=== PATIENT | male | born 1950 | race Caucasian/White ===

== ENCOUNTER 2018-01-20 09:51 | Emergency (ER) | payer MEDICARE, OTHER ==
[2018-01-20 10:36] LABS: ALT (SGPT) 89 U/L (8-55); AST (SGOT) 168 U/L (5-34); Albumin 4.1 g/dL (3.4-4.8); Alkaline Phosphatase 46 U/L (40-150); Anion Gap 21 mmol/L (10-20); BUN (Urea Nitrogen) 42 mg/dL (8.4-25.7); Bilirubin, Total 0.7 mg/dL (0.2-1.2); Calc. Creatinine Clearance 0 mL/min (70-130); Carbon Dioxide 18 mmol/L (23-31); Chloride 100 mmol/L (98-107); Estimated GFR-MDRD 36; Globulin 3.6 g/dL (2.4-3.5); Glucose 98 mg/dL (80-115); Potassium 3.7 mmol/L (3.5-5.1); Protein, Total 7.7 g/dL (5.8-8.1); Sodium 135 mmol/L (136-145)
--- NOTE | 2018-01-20 10:47 | RAD ---
PORTABLE CHEST 1 VIEW: Date: 01/20/18 Time: 1041 hours HISTORY: Influenza. FINDINGS: The heart size is borderline. No lobar consolidation, pneumothoraces, zachary pulmonary edema, or large effusions seen. IMPRESSION: No acute process. POS: OFF
[2018-01-20 10:54] LABS: Hemoglobin 14.7 g/dL (14.0-18.0); Mean Corpuscular HGB CONC 34.6 g/dL (32.0-36.0); Mean Corpuscular Hemoglobin 29.9 pg (27.0-31.0); Mean Corpuscular Volume 86.2 fl (80.0-94.0); Mean Platelet Volume 7.2 fL (7.4-10.4); Platelet Count 149 thou/uL (130-400); RBC Distribution Width 13.4 % (11.5-14.5); Red Blood Cell (RBC) Count 4.92 mill/uL (4.70-6.10); White Blood Cell (WBC) Count 4.1 thou/uL (4.8-10.8)
[2018-01-20 10:59] LABS: Band 7 % (5-11); Eosinophils 1 % (0-10); Lymphocytes 24 % (21-51); MDiff Complete? YES; Monocytes 13 % (0-10); Neutrophil 55 % (42-75); PLT Morphology Comment Appears Adequate; RBC Morphology Normal
[2018-01-20 11:18] LABS: Bilirubin Small (Negative); Blood, Urine Moderate (Negative); Clarity Clear (Clear); Glucose, Urine (Dipstick) Negative (Negative); Leukocyte Negative (Negative); Nitrite Negative (Negative); Protein, Urine (Dipstick) 30 mg/dL (Neg-Trace); Specific Gravity, Urine 1.015 (1.005-1.030); Urobilinogen 0.2 mg/dL (0.2-1.0); pH, Urine 5.5 (5.0-9.0)
[2018-01-20 11:37] LABS: RBC/HPF 0-3 HPF (0-3)
[2018-01-20 11:38] LABS: Bacteria/HPF None Seen HPF (None Seen); Crystals/HPF RARE CA OXALATE HPF (Negative); Hyaline Casts/LPF 4-6 HYALINE CAST LPF (0-3 Hyaline); Squamous Epithelial 0-3 HPF (0-3)
[2018-01-20 12:37] LABS: Anion Gap 17 mmol/L (10-20); BUN (Urea Nitrogen) 38 mg/dL (8.4-25.7); Calc. Creatinine Clearance 0 mL/min (70-130); Calcium 7.9 mg/dL (7.8-10.44); Carbon Dioxide 20 mmol/L (23-31); Chloride 105 mmol/L (98-107); Estimated GFR-MDRD 49; Glucose 85 mg/dL (80-115); Potassium 3.5 mmol/L (3.5-5.1); Sodium 138 mmol/L (136-145)
--- NOTE | 2018-01-25 16:19 | EKG ---
Test Reason : Blood Pressure : / mmHG Vent. Rate : 087 BPM Atrial Rate : 087 BPM P-R Int : 134 ms QRS Dur : 088 ms QT Int : 392 ms P-R-T Axes : 013 -32 038 degrees QTc Int : 471 ms Normal sinus rhythm Left axis deviation Moderate voltage criteria for LVH, may be normal variant No STEMI Abnormal ECG Confirmed by FANI GARZA, SHAN ([id number]), editor magazine ANDRE SANTORO ([id number]) on 01/25/2018 4:19:29 PM Referred By: FANI Confirmed By:SHAN MOHR MD
== END 2018-01-20 14:14 | disposition home or self-care (01) ==
LOC: SCSER 09:51
DX: J11.1 Influenza due to unidentified influenza virus with other respiratory manifestations (principal); E86.0 Dehydration; M06.9 Rheumatoid arthritis, unspecified; Z79.82 Long term (current) use of aspirin; Z87.891 Personal history of nicotine dependence
CPT/HCPCS: 71045; 80053; 81003; 81015; 83605; 85025; 87040; 93005; 96360; 96361; 99213; G0463

== ENCOUNTER 2020-01-04 09:51 | Outpatient (CLI) | payer MEDICARE, OTHER ==
[2020-01-04 10:19] LABS: Estimated GFR-MDRD - POC Greater than 90
--- NOTE | 2020-01-04 10:53 | CT ---
CT ABDOMEN AND PELVIS WITH IV CONTRAST 01/04/2020 CLINICAL INFORMATION: Upper abdominal pain. COMPARISON: 03/25/2017 Technique: Multiple contiguous axial CT images are obtained through the abdomen and pelvis with IV contrast. Cor onal reformatted images are provided. FINDINGS: Lower Chest: Mild bibasilar atelectasis is present. Stable 5 mm pulmonary nodule is seen at the right lung base. This nodule was also seen on prior exam in 2014. Vessels: Vascular calcifications are seen in the abdominal aorta and involving the iliac arteries. Abdomen: Portal vein:Patent Gallbladder: Within normal limits for CT imaging. Liver: A 13 mm hypodense lesion is seen in the posterior aspect lateral segment left hepatic lobe pre viously measured 11 mm on prior studies in 2014 in 2016. This is difficult to further characterize but likely represents a hepatic cyst. Spleen: Stable hypodense lesion with peripheral calcifications is again seen in the spleen suggestive of a splenic cyst. Subcentimeter too small to characterize hypodense lesion is also again seen in the lower pole of the spleen also likely related to a cyst. Pancreas: within normal limits. Adrenals: within normal limits. Kidneys: Stable hypodense bilateral renal lesions are again seen likely attributable to cysts given s imilar appearance to prior exams. Bowel: Postsurgical change are seen in the region of the rectosigmoid junction. A few scattered colon ic diverticula are seen, and there is small amount of retained fecal material seen throughout the colon. Loops of small bowel are normal in caliber. Appendix: The appendix is visualized and normal in caliber. Peritoneum: No ascites or free air; no fluid collection. Mesentery and Retroperitoneum: No enlarged mesenteric or retroperitoneal lymph nodes. Abdominal Wall: within normal limits. Pelvis: Reproductive Organs: Prostate gland is heterogeneous in appearance but similar to prior studies. Pelvis within normal limits. Bladder: Partially decompressed. There is mass effect on the inferior aspect urinary bladder secondar y to the prostate gland. This was also noted on prior exams. Bones: There are mild wedge-shaped compression fracture involving the T12, L1, and L2 vertebral chelsea s overall stable compared to prior studies. Schmorl's nodes are seen in endplates of these vertebral bodies. IMPRESSION: 1. No acute findings are seen in the abdomen or pelvis. 2. Cysts within the liver, spleen, and bilateral kidneys. 3. Mild prominence of the prostate gland which results in mass effect on the posterior inferior aspec t of the urinary bladder similar to prior exams. 4. Remote compression deformities involving the T12, L1, and L2 vertebral bodies.
== END 2020-01-04 09:52 | disposition home or self-care (01) ==
LOC: SCSCT 09:51
PROVIDERS: ATTEND Family Medicine
DX: R10.10 Upper abdominal pain, unspecified (principal); N28.1 Cyst of kidney, acquired; K76.89 Other specified diseases of liver; D73.4 Cyst of spleen; N32.89 Other specified disorders of bladder
CPT/HCPCS: 74177; 82565

== ENCOUNTER 2020-01-25 07:36 | Outpatient (CLI) | payer MEDICARE, OTHER ==
--- NOTE | 2020-01-25 08:54 | ULT ---
ULTRASOUND ABDOMEN LIMITED: (RIGHT UPPER QUADRANT) DATE: 01/25/2020. HISTORY: A 69-year-old male with epigastric pain. FINDINGS: Gallbladder: Tiny 0.7 cm nonshadowing hyperechoic focus in the lumen adherent to the inner wall. Fav ored to be a tiny polyp rather than gallstone. No pericholecystic fluid. No excessive distention of lumen. Common duct: 3 mm. Liver: Normal size and echogenicity. Pancreas: Almost completely obscured by shadowing from overlying bowel gas. Right kidney: No hydronephrosis. A 2 cm round complex cyst with focal internal echo/septation. IMPRESSION: 1. Tiny hyperechoic focus favored to represent gallbladder polyp rather than gallstone. 2. Complex cystic lesion in right kidney. DONG Asencio POS: CET
== END 2020-01-25 07:37 | disposition home or self-care (01) ==
LOC: SCSULT 07:36
PROVIDERS: ATTEND Internal Medicine Gastroenterology
DX: R10.13 Epigastric pain (principal); N28.1 Cyst of kidney, acquired
CPT/HCPCS: 76705

== ENCOUNTER 2020-02-02 09:24 | Outpatient (CLI) | payer MEDICARE, OTHER ==
[2020-02-02 11:16] LABS: #Eosinphils 0.2 thou/uL (0.0-0.7); #Lymphocytes 1.3 thou/uL (1.20-3.40); #Monocytes 0.8 thou/uL (0.11-0.59); #Neutrophils 5.6 thou/uL (1.40-6.50); %Basophils 0.6 % (0.0-1.0); %Eosinophils 2.1 % (0.0-10.0); %Lymphocytes 16.5 % (21.0-51.0); %Monocytes 9.9 % (0.0-10.0); %Neutrophils 70.9 % (42.0-75.0); Hemoglobin 13.4 g/dL (14.0-18.0); Mean Corpuscular HGB CONC 33.3 g/dL (32.0-36.0); Mean Corpuscular Hemoglobin 30.2 pg (27.0-31.0); Mean Corpuscular Volume 90.8 fL (78.0-98.0); Mean Platelet Volume 6.9 fL (7.4-10.4); Platelet Count 238 thou/uL (130-400); RBC Distribution Width 13.7 % (11.5-14.5); Red Blood Cell (RBC) Count 4.44 mill/uL (4.70-6.10); White Blood Cell (WBC) Count 7.9 thou/uL (4.8-10.8)
[2020-02-02 11:38] LABS: ALT (SGPT) 14 U/L (8-55); AST (SGOT) 16 U/L (5-34); Alkaline Phosphatase 62 U/L (40-110); Anion Gap 13 mmol/L (10-20); BUN (Urea Nitrogen) 15 mg/dL (8.4-25.7); Bilirubin, Direct 0.2 mg/dL (0.1-0.3); Bilirubin, Total 0.4 mg/dL (0.2-1.2); Calc. Creatinine Clearance 0 mL/min (70-130); Calcium 9.1 mg/dL (7.8-10.44); Carbon Dioxide 25 mmol/L (23-31); Chloride 105 mmol/L (98-107); Estimated GFR-MDRD Greater than 90; Glucose 82 mg/dL (80-115); Potassium 3.8 mmol/L (3.5-5.1); Sodium 139 mmol/L (136-145)
--- NOTE | 2020-02-02 22:56 | EKG ---
Test Reason : Blood Pressure : / mmHG Vent. Rate : 067 BPM Atrial Rate : 067 BPM P-R Int : 166 ms QRS Dur : 096 ms QT Int : 422 ms P-R-T Axes : 055 003 047 degrees QTc Int : 445 ms Normal sinus rhythm Normal ECG When compared with ECG of 24-JUN-2019 11:46, Minimal criteria for Septal infarct are no longer Present QT has shortened Confirmed by COCO GARZA, SChristine ([id number]) on 02/02/2020 10:56:20 PM Referred By: PIOTR Confirmed By:DR. Rolando SEPULVEDA MD
== END 2020-02-02 09:25 | disposition home or self-care (01) ==
LOC: LABBT 09:24
PROVIDERS: ATTEND Surgery
DX: Z01.818 Encounter for other preprocedural examination (principal); K81.1 Chronic cholecystitis
CPT/HCPCS: 80053; 80076; 85025; 93005; 93010

== ENCOUNTER 2020-02-03 07:03 | Day surgery (SDC) | payer MEDICARE, OTHER ==
[2020-02-02 10:00] VITALS: BMI 27.6
[2020-02-03] MEDS ORDERED: Bupivacaine PF 0.5% 30 ML VIAL ONE (08:37)
[2020-02-03] MEDS ORDERED: Lidocaine 1% w/Epinephrine 1:100K 20 ML VIAL ONE (08:37)
[2020-02-03] MEDS ORDERED: Fentanyl 250 MCG/5 ML VIAL ONE (08:48)
[2020-02-03] MEDS ORDERED: Fentanyl 100 MCG/2 ML VIAL ONE ×3 (10:14→11:02)
[2020-02-03] MEDS ORDERED: hydrALAZINE 20 MG/ML VIAL ONE (10:14)
[2020-02-03] MEDS ORDERED: Promethazine HCl 25 MG/ML VIAL ONE (10:18)
[2020-02-03] MEDS ORDERED: Labetalol HCl 100 MG/20 ML VIAL ONE (10:22)
[2020-02-03] MEDS ORDERED: PROPOFOL 200 MG/20 ML VIAL ONE (10:22)
[2020-02-03] MEDS ORDERED: Rocuronium Bromide 10 MG/ML (10ML VIAL) ONE (10:22)
[2020-02-03] MEDS ORDERED: Ondansetron PF 4 MG/2 ML Vial ONE (10:22)
[2020-02-03] MEDS ORDERED: HYDROmorphone 0.5 MG/0.5 ML SYRINGE ONE (11:15)
[2020-02-03] MEDS ORDERED: HYDROcodone/Acetaminophen 5/325 mg Tablet ONE (13:06)
--- NOTE | 2020-02-03 15:12 | OP ---
DATE OF PROCEDURE: 02/03/2020 PREOPERATIVE DIAGNOSIS: Symptomatic cholelithiasis. PROCEDURES PERFORMED: Laparoscopic lysis of adhesions and laparoscopic cholecystectomy. INDICATIONS: A 69-year-old male. He had a previous partial colectomy, was having extensive abdominal pain. Ultrasound showed a polyp in his gallbladder. FINDINGS: Dense adhesions. His transverse colon was actually adherent to the high port of the right side of the diaphragm covering the liver. I had to take all these adhesion down, just to get down to the gallbladder. He had a small caliber cystic duct. DESCRIPTION OF PROCEDURE: After informed consent was obtained, the patient was taken to the operating room, given general endotracheal anesthesia and placed in supine position. Abdomen was prepped and draped in usual fashion. Local anesthesia infiltrated subcutaneously and deep and a 5-mm port was placed subcostal, lateral right abdomen. A Veress needle inserted. Drop test performed. Pneumoperitoneum was created to a volume of 2 L of carbon dioxide. Utilizing a bladeless 5-mm trocar and 0-degree laparoscope, direct visual entry into the abdominal cavity was performed. Pneumoperitoneum was created to a pressure of 15 mmHg. A 0-degree laparoscope inserted under direct vision. There were minimal anterior abdominal wall adhesions, so a subumbilical incision was performed, 10-mm port placed there and two other 5-mm ports were placed right subcostal. The liver was not able to be visualized due to the transverse colon covering it, being adherent to the diaphragm way up high into the superior right side. The laparoscopic lysis of adhesions was performed utilizing the LigaSure to allow reduction of the colon to uncover the liver and expose the gallbladder. Then, the gallbladder was grasped and advanced superiorly. The peritoneum was dissected to expose the duct and artery. These were triply ligated with hemoclips and divided. The gallbladder was removed from its fossa utilizing electrocautery, placed in an endosac, removed from the abdomen in the endosac. Hemostasis was achieved utilizing electrocautery as well as Heidi powder. Trocars and retractors were removed. The fascia was closed with interrupted 0 Vicryl suture. The skin was closed with interrupted 4-0 Rapide. Dermabond applied. The patient tolerated the procedure well, transferred to Recovery in good condition. Sponge and needle count verified correct x2. Job ID: [id number]
== END 2020-02-03 14:50 | disposition home or self-care (01) ==
LOC: SDC 07:03
PROVIDERS: ATTEND Surgery
PROC: 0FT44ZZ Resection of Gallbladder, Percutaneous Endoscopic Approach (ICD-10-PCS; principal; 2020-02-03)
DX: K80.10 Calculus of gallbladder with chronic cholecystitis without obstruction (principal); K66.0 Peritoneal adhesions (postprocedural) (postinfection); E78.00 Pure hypercholesterolemia, unspecified; M06.9 Rheumatoid arthritis, unspecified; Z87.891 Personal history of nicotine dependence; Z79.82 Long term (current) use of aspirin; Z79.899 Other long term (current) drug therapy; Z88.2 Allergy status to sulfonamides
CPT/HCPCS: 88304; J0360; J0694; J1170; J2405; J2550; J2704; J3010; S0020

== ENCOUNTER 2020-05-13 10:59 | Outpatient (CLI) | payer MEDICARE, OTHER ==
--- NOTE | 2020-05-13 11:45 | ULT ---
EXAM: US Gallbladder RUQ CLINICAL HISTORY: Right upper quadrant pain. Recent cholecystectomy. COMPARISON: None. FINDINGS: Pancreas: Obscured by bowel gas Liver:Hepatic parenchyma has a normal echotexture. No hepatic masses or intrahepatic biliary dilatati on. Right hepatic lobe: 14.7 cm Gallbladder: Surgically absent Barragan's sign:Not applicable Portal Vein: Patent. Appropriate directional flow Bile ducts: 2.5 cm common bile duct diameter Right kidney: No hydronephrosis. Right kidney measures 6.3 x 11.8 x 6.0 cm in length. Hypoechoic focu s in the right renal cortex measures 1.8 x 2.1 x 1.8 cm. IMPRESSION: 1. Surgically absent gallbladder. No acute abnormality. 2. Hypoechoic focus in the right renal cortex as described above. Sonographic features suggest a comp leatha cyst. However, correlation made with CT 01/04/2020 does demonstrate a simple cyst.
== END 2020-05-13 11:00 | disposition home or self-care (01) ==
LOC: SCSULT 10:59
PROVIDERS: ATTEND Surgery
DX: R10.11 Right upper quadrant pain (principal); Z90.49 Acquired absence of other specified parts of digestive tract; N28.89 Other specified disorders of kidney and ureter
CPT/HCPCS: 76705

== ENCOUNTER 2021-06-19 01:48 | Inpatient (IN) | payer MEDICARE ==
[~2021-06-19 01:48] MED LIST: Bupivacaine PF 0.5% 30 ML VIAL ONE; Dexamethasone 4 mg/ml Vial ONE; EPINEPHrine 1 MG/ML AMP ONE; Heparin 5,000 UNITS/ML VIAL ONE; Protamine Sulfate 50 MG/5 ML VIAL ONE
[2021-06-19] MEDS ORDERED: Acetaminophen 325 MG TAB PO PRN (02:14)
[2021-06-19] MEDS ORDERED: Ondansetron PF 4 MG/2 ML Vial IVP PRN (02:14)
[2021-06-19] MEDS ORDERED: Fentanyl 100 MCG/2 ML VIAL SLOW IVP PRN ×2 (02:14)
[2021-06-19] MEDS ORDERED: Vancomycin HCl 1.5 GM in Sodium Chloride 0.9% 250 ML 300 ML IVPB SCH (02:15)
[2021-06-19] MEDS ORDERED: traMADol HCl 50 MG TAB PO PRN ×2 (02:16)
[2021-06-19] MEDS ORDERED: Succinylcholine 200 MG/10 ml SYRINGE FS ONE (02:22)
[2021-06-19] MEDS ORDERED: Ondansetron PF 4 MG/2 ML Vial ONE ×3 (02:22→18:47)
[2021-06-19] MEDS ORDERED: PROPOFOL 200 MG/20 ML VIAL ONE ×3 (02:22→18:47)
[2021-06-19] MEDS ORDERED: PHENYLEPHRINE-NS 100 MCG/ML 10 ML SYRINGE ONE ×3 (02:22→18:47)
[2021-06-19] MEDS ORDERED: Lidocaine 1% PF 5 ML VIAL ONE ×2 (02:22→14:39)
[2021-06-19] MEDS ORDERED: Fentanyl 100 MCG/2 ML VIAL ONE ×2 (02:34→13:34)
[2021-06-19] MEDS ORDERED: Ondansetron HCl/PF 4 MG/2 ML Vial IVP PRN ×3 (03:07→20:20)
[2021-06-19] MEDS ORDERED: Promethazine HCl 25 MG/ML VIAL IVPB PRN ×2 (03:07→20:20)
[2021-06-19] MEDS ORDERED: Promethazine HCl 25 MG/ML VIAL IM PRN ×2 (03:07→20:20)
[2021-06-19] MEDS ORDERED: Promethazine HCl 25 MG/ML VIAL ONE (03:08)
[2021-06-19] MEDS: Sodium Chloride 0.9% 1,000 ML IV SCH ×2 (04:35→18:36)
[2021-06-19 05:04] VITALS: BMI 26.2
[2021-06-19] MEDS: CEFAZOLIN 2 GM in Premix Bag 1 BAG IVPB SCH ×3 (06:14→18:36)
[2021-06-19] MEDS ORDERED: Promethazine HCl 12.5 MG in Sodium Chloride 0.9% 50 ML IVPB PRN (07:14)
[2021-06-19] MEDS ORDERED: Promethazine HCl 25 MG in Sodium Chloride 0.9% 50 ML IVPB PRN (07:14)
[2021-06-19] MEDS ORDERED: Aspirin Chewable 81 MG TAB PO SCH (09:00)
[2021-06-19] MEDS: Gabapentin 300 MG CAP PO SCH (10:21)
[2021-06-19] MEDS: Folic Acid 1 MG TAB PO SCH (10:21)
[2021-06-19] MEDS: Aspirin 81 mg Enteric Coated Tablet PO SCH (10:21)
[2021-06-19] MEDS: Hydroxychloroquine Sulfate 200 MG TAB PO SCH ×2 (10:21→21:21)
[2021-06-19] MEDS: Clindamycin/D5W 900 MG in Premix Bag 1 BAG IVPB SCH ×3 (10:23→21:47)
[2021-06-19] MEDS ORDERED: Heparin 5,000 UNITS/ML VIAL ONE ×2 (13:12→18:07)
[2021-06-19] MEDS ORDERED: Protamine Sulfate 50 MG/5 ML VIAL ONE ×2 (13:12→18:07)
[2021-06-19] MEDS ORDERED: EPINEPHrine 1 MG/ML AMP ONE (13:26)
[2021-06-19] MEDS ORDERED: Dexamethasone 4 mg/ml Vial ONE (13:26)
[2021-06-19] MEDS ORDERED: Bupivacaine PF 0.5% 30 ML VIAL ONE (13:26)
[2021-06-19] MEDS ORDERED: Iopamidol-370 76% 500 ML 1 ML ONE (13:54)
[2021-06-19] MEDS ORDERED: Dexamethasone 20 MG/5 ML VIAL ONE ×2 (14:39→18:47)
[2021-06-19] MEDS ORDERED: Rocuronium Bromide 10 MG/ML (10ML VIAL) ONE ×2 (14:39→18:47)
[2021-06-19] MEDS ORDERED: Glycopyrrolate 0.2 MG/ML 5 ML SYRINGE ONE ×2 (14:39→18:47)
[2021-06-19] MEDS ORDERED: ePHEDrine 50 MG/ML VIAL ONE (14:39)
[2021-06-19] MEDS ORDERED: Morphine Sulfate 2 MG/ML SYRINGE SLOW IVP PRN ×2 (15:44→20:20)
[2021-06-19] MEDS: Vancomycin 1.5 GRAM/300 ML BAG 1.5 GM in Premix Bag 1 BAG IVPB SCH (17:19)
[2021-06-19] MEDS ORDERED: Midazolam HCl 2 mg/2 ml Vial ONE (18:10)
[2021-06-19] MEDS ORDERED: Fentanyl 250 MCG/5 ML VIAL ONE (18:10)
[2021-06-19] MEDS ORDERED: Calcium Chloride 1 GM/10 ML Abboject SYRINGE ONE (18:47)
[2021-06-19] MEDS ORDERED: Albumin 25% 0 ML ONE (19:09)
[2021-06-19] MEDS ORDERED: Albumin 25% 100 ML ONE (19:11)
[2021-06-20] MEDS: Vancomycin 1.5 GRAM/300 ML BAG 1.5 GM in Premix Bag 1 BAG IVPB SCH (00:20)
[2021-06-20] MEDS: Sodium Chloride 0.9% 1,000 ML IV SCH (01:47)
[2021-06-20] MEDS: Methotrexate Sodium 2.5 MG TAB PO SCH (01:48)
[2021-06-20] MEDS: CEFAZOLIN 2 GM in Premix Bag 1 BAG IVPB SCH (02:35)
[2021-06-20] MEDS: Clindamycin/D5W 900 MG in Premix Bag 1 BAG IVPB SCH (03:55)
[2021-06-20 05:27] LABS: #Lymphocytes 0.9 thou/uL (1.20-3.40); #Monocytes 0.7 thou/uL (0.11-0.59); #Neutrophils 9.8 thou/uL (1.40-6.50); %Basophils 0.1 % (0.0-1.0); %Eosinophils 0.1 % (0.0-10.0); %Lymphocytes 7.4 % (21.0-51.0); %Monocytes 6.4 % (0.0-10.0); Hemoglobin 8.1 g/dL (14.0-18.0); Mean Corpuscular HGB CONC 34.3 g/dL (32.0-36.0); Mean Corpuscular Hemoglobin 33.1 pg (27.0-31.0); Mean Corpuscular Volume 96.3 fL (78.0-98.0); Mean Platelet Volume 6.4 fL (7.4-10.4); Platelet Count 290 thou/uL (130-400); RBC Distribution Width 13.1 % (11.5-14.5); Red Blood Cell (RBC) Count 2.46 mill/uL (4.70-6.10); White Blood Cell (WBC) Count 11.4 thou/uL (4.8-10.8)
[2021-06-20] MEDS ORDERED: Clindamycin 150 MG CAP PO SCH (07:00)
[2021-06-20] MEDS ORDERED: Vancomycin 1.5 GRAM/300 ML BAG 1.5 GM in Premix Bag 1 BAG IVPB SCH (09:00)
[2021-06-20] MEDS ORDERED: Vancomycin HCl 1.5 GM in Sodium Chloride 0.9% 250 ML 300 ML IVPB SCH (09:00)
[2021-06-20] MEDS: Aspirin 81 mg Enteric Coated Tablet PO SCH (09:49)
[2021-06-20] MEDS: Folic Acid 1 MG TAB PO SCH (09:50)
[2021-06-20] MEDS: Gabapentin 300 MG CAP PO SCH (09:50)
[2021-06-20] MEDS: Hydroxychloroquine Sulfate 200 MG TAB PO SCH ×2 (09:51→22:45)
[2021-06-20] MEDS: Doxycycline 100 MG CAP PO SCH (20:10)
[2021-06-21 05:24] LABS: #Basophils 0.1 thou/uL (0.0-0.2); #Eosinphils 0.1 thou/uL (0.0-0.7); #Lymphocytes 1.3 thou/uL (1.20-3.40); #Neutrophils 7.3 thou/uL (1.40-6.50); %Basophils 0.7 % (0.0-1.0); %Lymphocytes 13.6 % (21.0-51.0); %Monocytes 10.4 % (0.0-10.0); %Neutrophils 74.2 % (42.0-75.0); Hemoglobin 7.5 g/dL (14.0-18.0); Mean Corpuscular HGB CONC 33.9 g/dL (32.0-36.0); Mean Corpuscular Hemoglobin 31.9 pg (27.0-31.0); Mean Corpuscular Volume 94.3 fL (78.0-98.0); Mean Platelet Volume 6.4 fL (7.4-10.4); Platelet Count 296 thou/uL (130-400); RBC Distribution Width 13.2 % (11.5-14.5); Red Blood Cell (RBC) Count 2.34 mill/uL (4.70-6.10); White Blood Cell (WBC) Count 9.9 thou/uL (4.8-10.8)
[2021-06-21 08:32] VITALS: BP 138/62; TEMP 98.4
[2021-06-21] MEDS ORDERED: Methotrexate Sodium 2.5 MG TAB PO SCH ×2 (09:00)
[2021-06-21] MEDS: Doxycycline 100 MG CAP PO SCH (09:38)
== END 2021-06-21 09:55 | disposition home or self-care (01) | DRG 253 ==
LOC: ERS 01:48 → SDC/OP 02:27 → 2SW 03:00
PROVIDERS: ADMIT Thoracic Surgery (Cardiothoracic Vascular Surgery); ATTEND Thoracic Surgery (Cardiothoracic Vascular Surgery)
PROC: 04CK0ZZ Extirpation of Matter from Right Femoral Artery, Open Approach (ICD-10-PCS; principal; 2021-06-19)
PROC: 04UK0KZ Supplement Right Femoral Artery with Nonautologous Tissue Substitute, Open Approach (ICD-10-PCS; 2021-06-19)
PROC: 04QK0ZZ Repair Right Femoral Artery, Open Approach (ICD-10-PCS; 2021-06-19)
PROC: 0Y370ZZ Control Bleeding in Right Femoral Region, Open Approach (ICD-10-PCS; 2021-06-19)
PROC: B41D1ZZ Fluoroscopy of Aorta and Bilateral Lower Extremity Arteries using Low Osmolar Contrast (ICD-10-PCS; 2021-06-19)
DX: T81.718A Complication of other artery following a procedure, not elsewhere classified, initial encounter (principal); I74.3 Embolism and thrombosis of arteries of the lower extremities; I97.621 Postprocedural hematoma of a circulatory system organ or structure following other procedure; I72.4 Aneurysm of artery of lower extremity; Z20.822 Contact with and (suspected) exposure to COVID-19; M06.9 Rheumatoid arthritis, unspecified; Y83.8 Other surgical procedures as the cause of abnormal reaction of the patient, or of later complication, without mention of misadventure at the time of the procedure; Z98.1 Arthrodesis status; Z87.891 Personal history of nicotine dependence; Z90.49 Acquired absence of other specified parts of digestive tract; Z88.2 Allergy status to sulfonamides
CPT/HCPCS: 36415; 75635; 85025; 87070; 87077; 87186; 87205; 99284; J0171; J0690; J1100; J1644; J2250; J2405; J2550; J2704; J2720; J3010; J3370; J3490; J8540; P9047; Q9967; S0020